=== PATIENT | male | born 1950 | race Caucasian/White ===

== ENCOUNTER → 2018-12-19 09:59 | Outpatient (CLI) | payer OTHER, SELFPAY ==
[2018-12-19 10:58] LABS: Alanine Aminotransferase 29 IU/L (21-72); Albumin 4.2 g/dL (3.5-5.0); Albumin Globulin Ratio 1.4 (1.0-2.8); Alkaline Phosphatase 90 U/L (38-126); Aspartate Aminotransferase 21 IU/L (17-59); Bilirubin Total 0.7 mg/dL (0.2-1.3); Blood Urea Nitrogen 17 mg/dL (9-20); Carbon Dioxide 27 mmol/L (22-32); Chloride 104 mmol/L (98-107); Cholesterol 234 mg/dL (140-199); Estimated Glomerular Filt Rate > 60.0 mL/min (>60); Glucose 109 mg/dL (80-110); HDL Cholesterol 39 mg/dL (40-60); HEMOLYSIS 17 (0-50); LDL Cholesterol Calculated 160 mg/dL (<100); Potassium 4.4 mmol/L (3.4-5.1); Sodium 138 mmol/L (137-145); Total Protein 7.2 g/dL (6.3-8.2); Triglycerides 173 mg/dL (35-150)
[2018-12-19 11:22] LABS: Prostate Specific Antigen Scrn 4.73 ng/mL (0.1-4.0)
== END ==
PROVIDERS: PCP Internal Medicine; Visit Provider Internal Medicine
DX: Z13.6 Encounter for screening for cardiovascular disorders (principal); Z12.5 Encounter for screening for malignant neoplasm of prostate; Z13.1 Encounter for screening for diabetes mellitus
CPT/HCPCS: 36415; 80053; 80061; G0103

== ENCOUNTER → 2018-12-20 09:46 | Outpatient (CLI) | payer OTHER, SELFPAY ==
[2018-12-24 15:21] LABS: PSA Free % 14 % (calc) (> 25); PSA, Total 5.1 ng/mL (< 4.1)
== END ==
PROVIDERS: PCP Internal Medicine; Visit Provider Internal Medicine
DX: R97.20 Elevated prostate specific antigen [PSA] (principal)
CPT/HCPCS: 36415; 84153; 84154

== ENCOUNTER → 2019-11-04 11:49 | Outpatient (CLI) | payer MEDICARE, SELFPAY ==
[2019-11-04 13:21] LABS: Prostate Specific Antigen 4.63 ng/mL (0.10-4.00)
== END ==
PROVIDERS: PCP Internal Medicine; Referring Provider Internal Medicine; Visit Provider Internal Medicine
DX: R97.20 Elevated prostate specific antigen [PSA] (principal)
CPT/HCPCS: 84153

== ENCOUNTER → 2020-03-24 10:03 | Outpatient (CLI) | payer MEDICARE, SELFPAY ==
[2020-03-24 12:12] LABS: Alanine Aminotransferase 24 IU/L (<50); Albumin 4.3 g/dL (3.5-5.0); Albumin Globulin Ratio 1.3 (1.0-2.8); Alkaline Phosphatase 111 U/L (38-126); Aspartate Aminotransferase 27 IU/L (17-59); BUN Creatinine Ratio 18.6 (6-22); Bilirubin Total 0.7 mg/dL (0.2-1.3); Blood Urea Nitrogen 19 mg/dL (9-20); Calcium 9.8 mg/dL (8.4-10.2); Carbon Dioxide 30 mmol/L (22-32); Chloride 102 mmol/L (98-107); Cholesterol 238 mg/dL (140-199); Estimated Glomerular Filt Rate > 60.0 mL/min (>60); Globulin 3.2 g/dL (1.7-4.1); Glucose 110 mg/dL (80-110); HDL Cholesterol 39 mg/dL (40-60); HEMOLYSIS < 15 (0-50); LDL Cholesterol Calculated 156 mg/dL (<100); Potassium 4.7 mmol/L (3.4-5.1); Sodium 139 mmol/L (137-145); Total Protein 7.5 g/dL (6.3-8.2); Triglycerides 216 mg/dL (35-150)
== END ==
PROVIDERS: PCP Internal Medicine; Referring Provider Internal Medicine; Visit Provider Internal Medicine
DX: E78.5 Hyperlipidemia, unspecified (principal); R97.20 Elevated prostate specific antigen [PSA]
CPT/HCPCS: 36415; 80053; 80061; 84153

== ENCOUNTER → 2021-03-22 12:50 | Outpatient (CLI) | payer MEDICARE, SELFPAY ==
--- NOTE | 2021-03-22 12:50 | DI.US.S_ITS ---
PROCEDURE: US RENAL COMPLETE INDICATIONS: flank pain TECHNIQUE: Real-time scanning was performed of the kidneys and bladder, with image documentation. COMPARISON: [facility], CT, KIDNEY/ URETER/BLADDER, 12/08/2016, 11:05. FINDINGS: Kidneys: Kidneys are normal in size. Right kidney measures 11.6 cm long; left kidney measures 11 point cm long. Right renal cortical thickness is 1.4 cm; left renal cortical thickness is 1.8 cm. Renal cortical echotexture is normal. No hydronephrosis or nephrolithiasis. No suspicious solid mass lesions. Bladder: Pre-void bladder volume is 122 mL. Post-void residual is 90 mL. Pre-void images demonstrate no intraluminal masses or stones. On pre-void images, both ureteral jets are noted with color Doppler interrogation. (Of note, ureteral jets may not be detectable in up to 25% of cases due to insufficient differences in specific gravity between ureteral and bladder urine). Bladder has a irregular contour. Miscellaneous: No free pelvic fluid. IMPRESSION: 1. Normal ultrasound appearance of kidneys. No renal stone or hydronephrosis. 2. Bilateral ureteral jets were visualized. 3. Bladder has irregular contour but no discrete mass visualized. If clinically indicated, CT KUB may be may be helpful. Dictated by: Suleiman Ashraf M.D. on 03/22/2021 at 16:05 Approved by: Suleiman Ashraf M.D. on 03/22/2021 at 16:15
== END ==
PROVIDERS: PCP Internal Medicine; Referring Provider Registered Nurse; Visit Provider Registered Nurse
DX: R10.9 Unspecified abdominal pain (principal)
CPT/HCPCS: 76770

== ENCOUNTER → 2021-03-28 10:42 | Outpatient (CLI) | payer MEDICARE, SELFPAY ==
--- NOTE | 2021-03-28 10:44 | DI.CT.S_ITS ---
PROCEDURE: CT KIDNEY URETER BLADDER (KUB) INDICATIONS: Renal Stone TECHNIQUE: Axial sections were acquired from the lung bases to the pubic symphysis. Coronal and sagittal reformats were performed. For radiation dose reduction, the following was used: automated exposure control, adjustment of mA and/or kV according to patient size. COMPARISON:[facility], CT, KIDNEY/ URETER/BLADDER, 12/08/2016, 11:05. FINDINGS: Image quality: Excellent. Lung bases: 9 mm calcified granuloma in anterior right lung base is again seen unchanged from prior study. Heart: No significant findings. URINARY: Right Kidney: No renal stones or hydronephrosis. Right Ureter: No hydroureter. Left Kidney: No renal stones or hydronephrosis. Left Ureter: No hydroureter. Bladder: Borderline bladder wall thickening is seen, no discrete bladder wall mass. No stones. Enlarged prostate gland with mass effect on floor of urinary bladder is seen. ABDOMEN: Liver: There is hepatic steatosis. Gallbladder: Unremarkable. Biliary ducts: Unremarkable. Pancreas: Unremarkable. Spleen: Unremarkable. Adrenal Glands: Unremarkable. Stomach and Bowel: Stomach, small bowel loops, and colon are unremarkable. Appendix is visualized and is within normal limits. Peritoneum: No abnormal intraperitoneal fluid. No free air. Ventral Wall: No hernia. Abdominal Nodes: No enlarged retroperitoneal or mesenteric lymph nodes. Vessels: Aorta and inferior vena cava are normal in size. PELVIS: Pelvic Organs: Unremarkable. Pelvic Nodes: Unremarkable. Miscellaneous: No inguinal hernias are seen. Bones: Degenerative disc disease throughout lower thoracic and lumbar spine is seen most prominent at L5-S1 level. IMPRESSION: 1. No renal stone or hydronephrosis. Borderline bladder wall thickening without discrete bladder wall lesion. Enlarged prostate gland with mild mass effect on floor of urinary bladder. 2. No bowel obstruction or abnormal bowel wall thickening. No free fluid or free air. 3. Hepatic steatosis. 4. 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 Dictated by: Mario Davalos M.D. on 03/28/2021 at 13:36 Approved by: Mario Davalos M.D. on 03/28/2021 at 13:48
== END ==
PROVIDERS: PCP Internal Medicine; Referring Provider Registered Nurse; Visit Provider Registered Nurse
DX: N20.0 Calculus of kidney (principal); K76.0 Fatty (change of) liver, not elsewhere classified; M51.34 Other intervertebral disc degeneration, thoracic region; M51.36 Other intervertebral disc degeneration, lumbar region; N40.0 Benign prostatic hyperplasia without lower urinary tract symptoms
CPT/HCPCS: 74176

== ENCOUNTER → 2021-04-15 07:58 | Outpatient (CLI) | payer MEDICARE, SELFPAY ==
[2021-04-15 08:59] LABS: Alanine Aminotransferase 22 IU/L (<50); Albumin 3.9 g/dL (3.5-5.0); Albumin Globulin Ratio 1.3 (1.0-2.8); Alkaline Phosphatase 96 U/L (38-126); Aspartate Aminotransferase 23 IU/L (17-59); BUN Creatinine Ratio 18.4 (6-22); Bilirubin Total 0.7 mg/dL (0.2-1.3); Blood Urea Nitrogen 18 mg/dL (9-20); Calcium 9.6 mg/dL (8.4-10.2); Carbon Dioxide 27 mmol/L (22-32); Chloride 105 mmol/L (98-107); Cholesterol 227 mg/dL (140-199); Estimated Glomerular Filt Rate > 60.0 mL/min (>60); Globulin 2.9 g/dL (1.7-4.1); Glucose 115 mg/dL (80-110); HDL Cholesterol 47 mg/dL (40-60); HEMOLYSIS < 15 (0-50); LDL Cholesterol Calculated 139 mg/dL (<100); Potassium 4.4 mmol/L (3.4-5.1); Sodium 139 mmol/L (137-145); Total Protein 6.8 g/dL (6.3-8.2); Triglycerides 206 mg/dL (35-150)
[2021-04-15 09:25] LABS: TSH w/ Reflex to FT4 2.46 uIU/mL (0.47-4.68)
[2021-04-15 09:35] LABS: Prostate Specific Antigen 4.49 ng/mL (0.10-4.00)
== END ==
PROVIDERS: PCP Internal Medicine; Referring Provider Internal Medicine; Visit Provider Internal Medicine
DX: E78.5 Hyperlipidemia, unspecified (principal); R97.20 Elevated prostate specific antigen [PSA]; K76.0 Fatty (change of) liver, not elsewhere classified; I10 Essential (primary) hypertension
CPT/HCPCS: 36415; 80053; 80061; 84153; 84443

== ENCOUNTER 2021-04-21 10:15 | Outpatient (RCR) | payer MEDICARE, SELFPAY ==
--- NOTE | 2021-04-21 16:05 | PT.OIE ---
Current Diagnoses Spondylosis without myelopathy or radiculopathy, thoracic region (04/21/21) Spondylosis without myelopathy or radiculopathy, lumbar region (04/21/21) Low back pain (04/21/21) Past Medical History (Last Updated 04/14/21 @ 16:12 by John De La Cruz MD) Dupuytren's contracture of left hand Elevated PSA Fatty liver H/O renal calculi Hyperlipidemia Retinal microaneurysm Warts (05/14/02) Visit Care Team Role Provider Type John De La Cruz MD Primary Care Provider Physician Specialty: Internal Medicine Address: [address] [place] [address], [facility], [place], [facility] Email: [email or web address] MARQUIS Murdock Attending Provider Advanced Courtesy Driver Referring Provider Specialty: Medical Address: [address] [place] [address], [facility] Email: [email or web address] Physical Therapy Initial Evaluation PT-OP-A Visit Information Start: 04/21/21 15:46 Freq: Status: Active Protocol: Document 04/21/21 15:47 HH (Rec: 04/21/21 16:04 [email or web address]) Out-Patient Physical Therapy Visit Information Visit Information Visit Type Initial Evaluation Visit Start Time 10:30 Visit Stop Time 11:15 Total Visit Minutes 45 Visit Number 1 Number of FLOOR HAND Visits 0 Evaluation Information Evaluation Date 04/21/21 PT-OP-B Current Condition Start: 04/21/21 15:46 Freq: Status: Active Protocol: Document 04/21/21 15:47 HH (Rec: 04/21/21 16:04 [email or web address]) Current Condition History of Current Condition Onset Date 6 weeks ago Current Complaints LBP History of Current Condition Anthony is a 70yo active and heathly gentleman here for his LBP started 6 weeks ago. Pt thought it was recurrent kidney stone but his CT/ ultrasound shows negative finding. Then Dr. 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 Pt stated his pain locates mostly on R side with stiffness in the morning and after prolonged sitting. Denies any tingling/ numbness/ radiating pain. Fortunately, pt stated his pain is mostly gone now. He also has an exercise routine which inlcudes, pull up, push up, crunches and leg lift. PT-OP-C Subjective Start: 04/21/21 15:46 Freq: Status: Active Protocol: Document 04/21/21 15:47 HH (Rec: 04/21/21 16:04 [email or web address]) Patient Questionnaires Oswestry Low Back Index Oswestry Score 2 Oswestry Impairment 1 to 19% Impaired (Score 1-19) PT-OP-F Manual Assessment Start: 04/21/21 15:46 Freq: Status: Active Protocol: Document 04/21/21 15:47 HH (Rec: 04/21/21 16:04 [email or web address]) Manual Assessments Soft Tissue Assessment Soft Tissue Mobility Assessment mild tonicity noted at proximal QL bilaterally. Joint Mobility Assessment Joint Mobility Assessment limited segmental lumbar flexion PT-OP-H Neuro Start: 04/21/21 15:46 Freq: Status: Active Protocol: Document 04/21/21 15:47 HH (Rec: 04/21/21 16:04 [email or web address]) Sensation Evaluation Gross Sensation Gross Sensation WNL Deep Tendon Reflex & Clonus Assessment Deep Tendon Reflex Bilateral Achilles Deep Tendon Reflex 2+ Normal Bilateral Patellar Deep Tendon Reflex 2+ Normal PT-OP-K Range of Motion Start: 04/21/21 15:46 Freq: Status: Active Protocol: Document 04/21/21 15:47 HH (Rec: 04/21/21 16:04 [email or web address]) Lumbar Spine Range of Motion Lumbar Spine Active Degrees Comments toe touch= 7 inches from floor lateral flexion= reaches lateral knee shoulder clears heels for extension pressure noted at lumbar spine during extension PT-OP-L Special Tests Start: 04/21/21 15:46 Freq: Status: Active Protocol: Document 04/21/21 15:47 HH (Rec: 04/21/21 16:04 [email or web address]) Special Tests Lumbar Spine Special Tests Miguelito Test Results -ve B Straight Leg Raise Test Results -ve B Slump Test Results -ve B Hip Special Tests Straight Leg Raise Test Results -ve B PORSHA Test Results -ve B Scour Test Test Results -ve B PT-OP-M Strength Start: 04/21/21 15:46 Freq: Status: Active Protocol: Document 04/21/21 15:47 HH (Rec: 04/21/21 16:04 [email or web address]) Hip Strength Hip Manual Muscle Testing Right Flexion (L2) 5 Normal Extension (S1) 5 Normal Abduction 5 Normal Adduction 5 Normal Left Flexion (L2) 5 Normal Extension (S1) 5 Normal Abduction 5 Normal Adduction 5 Normal PT-OP-Q Treatments Start: 04/21/21 15:46 Freq: Status: Active Protocol: Document 04/21/21 15:47 HH (Rec: 04/21/21 16:04 [email or web address]) Therapeutic Exercises Sitting Exercises seated lumbar flexion Side bilateral Comments for HEP Standing Exercises tennis ball Standing Exercise Name QL release Side bilateral Comments for HEP PT-OP-T Assessment and Plan Start: 04/21/21 15:46 Freq: Status: Active Protocol: Document 04/21/21 15:47 HH (Rec: 04/21/21 16:04 [email or web address]) Physical Therapy Assessment Rehab Potential Rehabilitation Potential Excellent Evaluation Complexity Number of Personal Factors/Comorbidities 0 Number of Body Systems Impaired 1-2 Clinical Presentation at Evaluation Stable Impairments Impairments Pain,Posture,ROM,Soft Tissue Mobility Assessment Summary Assessment Anthony is a 70 yo active and healthy male here for his LBP started 6 weeks ago. Pt has progressively getting better since and he currently does not have any discomfort. 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 Educated pt QL release with tennis ball and lumbar flexion stretch. Pt stated he does have the need of continuous skilled therapy d/t high copay and his current good progress . But he is pleased with his new HEP to improve his overall lumbar mobility. Therefore, this session is an evaluation only and I will discharge this case at the same time. Physical Therapy Plan Frequency and Duration Duration of Treatment 1 day Plan of Care Start Date 04/21/21 Plan of Care End Date 04/21/21 Discharge Physical Therapy Discharge Reasons Patient Request
--- NOTE | 2021-04-21 16:05 | PT.OPPOC ---
Physical, Occupational & Speech Therapy At [facility] Current Diagnoses Spondylosis without myelopathy or radiculopathy, thoracic region (04/21/21) Spondylosis without myelopathy or radiculopathy, lumbar region (04/21/21) Low back pain (04/21/21) Visit Care Team Role Provider Type John De La Cruz MD Primary Care Provider Physician Specialty: Internal Medicine Address: [address] [place] [address], [address], [address] Email: [email or web address] MARQUIS Murdock Attending Provider Advanced Armature [employer] Referring Provider Specialty: Medical Address: [address] [place] [address], [id number] Email: [email or web address] Plan Of Care PT-OP-T Assessment and Plan Start: 04/21/21 15:46 Freq: Status: Active Protocol: Document 04/21/21 15:47 (Rec: 04/21/21 16:04 [email or web address]) Physical Therapy Assessment Rehab Potential Rehabilitation Potential Excellent Evaluation Complexity Number of Personal Factors/Comorbidities 0 Number of Body Systems Impaired 1-2 Clinical Presentation at Evaluation Stable Impairments Impairments Pain,Posture,ROM,Soft Tissue Mobility Assessment Summary Assessment Anthony is a 70 yo active and healthy male here for his LBP started 6 weeks ago. Pt has progressively getting better since and he currently does not have any discomfort. 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 Educated pt QL release with tennis ball and lumbar flexion stretch. Pt stated he does have the need of continuous skilled therapy d/t high copay and his current good progress . But he is pleased with his new HEP to improve his overall lumbar mobility. Therefore, this session is an evaluation only and I will discharge this case at the same time. Physical Therapy Plan Frequency and Duration Duration of Treatment 1 day Plan of Care Start Date 04/21/21 Plan of Care End Date 04/21/21 Discharge Physical Therapy Discharge Reasons Patient Request Plan of Care Dates Plan of Care Start Date 04/21/21 Plan of Care End Date 04/21/21 Electronically Signed by: Martin Bazan, PT 04/21/21 2901 Please Sign and Return: I have reviewed this Plan of Care and certify that the skilled therapy services above are required to meet the patient?s needs. Physician Signature Date Printed Name and Credentials Clinical Instructor Signature Printed Name and Credentials
== END 2021-04-25 09:50 | disposition home or self-care (01) ==
LOC: PHYS 10:15
PROVIDERS: PCP Internal Medicine; Referring Provider Registered Nurse; Visit Provider Registered Nurse
DX: M54.5 Low back pain (principal); M47.816 Spondylosis without myelopathy or radiculopathy, lumbar region; M47.814 Spondylosis without myelopathy or radiculopathy, thoracic region
CPT/HCPCS: 97110; 97161

== ENCOUNTER → 2022-06-16 08:46 | Outpatient (CLI) | payer MEDICARE, SELFPAY ==
[2022-06-16 10:42] LABS: Alanine Aminotransferase 21 IU/L (<50); Albumin Globulin Ratio 1.4 (1.0-2.8); Alkaline Phosphatase 97 U/L (38-126); Aspartate Aminotransferase 24 IU/L (17-59); Bilirubin Total 0.8 mg/dL (0.2-1.3); Blood Urea Nitrogen 20 mg/dL (9-20); Calcium 9.1 mg/dL (8.4-10.2); Carbon Dioxide 27 mmol/L (22-32); Chloride 102 mmol/L (98-107); Cholesterol 233 mg/dL (140-199); Estimated Glomerular Filt Rate > 60 mL/min (>60); Globulin 2.9 g/dL (1.7-4.1); Glucose 105 mg/dL (80-110); HDL Cholesterol 40 mg/dL (40-60); HEMOLYSIS < 15 (0-50); LDL Cholesterol Calculated 165 mg/dL (<100); Potassium 4.6 mmol/L (3.4-5.1); Sodium 139 mmol/L (137-145); Total Protein 6.9 g/dL (6.3-8.2); Triglycerides 139 mg/dL (35-150)
[2022-06-16 11:10] LABS: Prostate Specific Antigen 4.19 ng/mL (0.10-4.00)
== END ==
PROVIDERS: PCP Internal Medicine; Referring Provider Internal Medicine; Visit Provider Internal Medicine
DX: E78.5 Hyperlipidemia, unspecified (principal); R97.20 Elevated prostate specific antigen [PSA]; K76.0 Fatty (change of) liver, not elsewhere classified
CPT/HCPCS: 36415; 80053; 80061; 84153

== ENCOUNTER → 2023-12-18 09:35 | Outpatient (CLI) | payer MEDICARE, SELFPAY ==
[2023-12-18 11:53] LABS: Alanine Aminotransferase 21 IU/L (<50); Albumin 3.9 g/dL (3.5-5.0); Albumin Globulin Ratio 1.4 (1.0-2.8); Alkaline Phosphatase 90 U/L (38-126); Aspartate Aminotransferase 24 IU/L (17-59); BUN Creatinine Ratio 17.1 (6-22); Bilirubin Total 0.9 mg/dL (0.2-1.3); Blood Urea Nitrogen 19 mg/dL (9-20); Calcium 9.5 mg/dL (8.4-10.2); Carbon Dioxide 30 mmol/L (22-32); Chloride 104 mmol/L (98-107); Cholesterol 244 mg/dL (140-199); Estimated Glomerular Filt Rate > 60 mL/min (>60); Globulin 2.8 g/dL (1.7-4.1); Glucose 114 mg/dL (80-110); HDL Cholesterol 48 mg/dL (40-60); HEMOLYSIS < 15 (0-50); LDL Cholesterol Calculated 171 mg/dL (<100); Potassium 4.5 mmol/L (3.4-5.1); Sodium 137 mmol/L (137-145); Total Protein 6.7 g/dL (6.3-8.2); Triglycerides 123 mg/dL (35-150)
== END ==
PROVIDERS: PCP Internal Medicine; Referring Provider Internal Medicine; Visit Provider Internal Medicine
DX: E78.5 Hyperlipidemia, unspecified (principal); R97.20 Elevated prostate specific antigen [PSA]
CPT/HCPCS: 36415; 80053; 80061

== ENCOUNTER → 2024-03-25 10:09 | Outpatient (CLI) | payer MEDICARE, SELFPAY ==
[2024-03-25 11:35] LABS: Alanine Aminotransferase 20 IU/L (<50); Albumin 4.2 g/dL (3.5-5.0); Albumin Globulin Ratio 1.4 (1.0-2.8); Alkaline Phosphatase 98 U/L (38-126); Aspartate Aminotransferase 24 IU/L (17-59); BUN Creatinine Ratio 15.4 (6-22); Bilirubin Total 0.9 mg/dL (0.2-1.3); Blood Urea Nitrogen 16 mg/dL (9-20); Calcium 8.9 mg/dL (8.4-10.2); Carbon Dioxide 29 mmol/L (22-32); Chloride 106 mmol/L (98-107); Cholesterol 172 mg/dL (140-199); Estimated Glomerular Filt Rate > 60 mL/min (>60); Glucose 114 mg/dL (80-110); HDL Cholesterol 49 mg/dL (40-60); HEMOLYSIS < 15 (0-50); LDL Cholesterol Calculated 98 mg/dL (<100); Potassium 4.5 mmol/L (3.4-5.1); Sodium 139 mmol/L (137-145); Total Protein 7.2 g/dL (6.3-8.2); Triglycerides 123 mg/dL (35-150)
== END ==
PROVIDERS: PCP Internal Medicine; Referring Provider Internal Medicine; Visit Provider Internal Medicine
DX: E78.2 Mixed hyperlipidemia (principal)
CPT/HCPCS: 36415; 80053; 80061

== ENCOUNTER → 2025-01-01 09:39 | Outpatient (CLI) | payer MEDICARE, SELFPAY ==
[2025-01-01 11:24] LABS: Alanine Aminotransferase 23 IU/L (<50); Albumin 4.3 g/dL (3.5-5.0); Albumin Globulin Ratio 1.7 (1.0-2.8); Alkaline Phosphatase 107 U/L (38-126); Aspartate Aminotransferase 25 IU/L (17-59); Bilirubin Total 0.7 mg/dL (0.2-1.3); Blood Urea Nitrogen 15 mg/dL (9-20); Calcium 9.5 mg/dL (8.4-10.2); Carbon Dioxide 25 mmol/L (22-32); Chloride 103 mmol/L (98-107); Cholesterol 165 mg/dL (140-199); Estimated Glomerular Filt Rate > 60 mL/min (>60); Globulin 2.5 g/dL (1.7-4.1); Glucose 115 mg/dL (80-110); HDL Cholesterol 47 mg/dL (40-60); HEMOLYSIS < 15 (0-50); LDL Cholesterol Calculated 96 mg/dL (<100); Potassium 4.4 mmol/L (3.4-5.1); Sodium 138 mmol/L (137-145); Total Protein 6.8 g/dL (6.3-8.2); Triglycerides 110 mg/dL (35-150)
== END ==
PROVIDERS: PCP Internal Medicine; Referring Provider Internal Medicine; Visit Provider Internal Medicine
DX: E78.5 Hyperlipidemia, unspecified (principal); K76.0 Fatty (change of) liver, not elsewhere classified
CPT/HCPCS: 80053; 80061